=== PATIENT | male | born 1960 | race Caucasian/White ===

== ENCOUNTER 2021-01-27 05:34 | Day surgery (SDC) | payer OTHER ==
[~2021-01-27 05:34] MED LIST: ALEVE220 M1 PO; CENTRUM ADULTS1 EACH PO; MELOXICAM15 MG PO; MULTIVITAMINS1 EAC1 PO
[2021-01-27] MEDS ORDERED: PERCOCET 5-3251 EACH PO (09:24)
--- NOTE | 2021-01-27 13:48 | NUR ---
PT. TO D/C HOME. PT. REQUESTED THERAPY AT [facility]. FIRST APPT. IS 01/30/21 @ 9:30 A[facility].
[2021-01-28 07:09] LABS: BASOPHIL 0.3 % (0-2); EOSINOPHIL 0.1 % (0-5); HCT 36.2 % (42.0-52.0); HGB 12.1 g/dl (13.2-18.0); MCH 33.1 pg (25.0-31.0); MCHC 33.4 g/dL (32.0-36.0); MCV 98.9 fL (78.0-100.0); MONOCYTE 8.3 % (0-12); MPV 12.1 fL (6.0-9.5); NRBC 0; PLT 152 K/uL (150-400); RBC 3.66 M/uL (4.70-6.00); RDW 12.3 % (11.5-14.0); WBC 12.4 K/uL (4.0-10.5)
[2021-01-28 07:39] LABS: BUN/CREAT RATIO (CALC) 16.9 RATIO; CREATININE 0.89 mg/dL (0.67-1.17); POTASSIUM 3.7 mmol/L (3.5-5.1)
[2021-01-28] MEDS ORDERED: FEOSOL325 MG PO (08:56)
[2021-01-28] MEDS ORDERED: ASPIRIN81 MG PO (08:56)
[2021-01-28] MEDS ORDERED: ULTRA-LIGHT RO1 EACH XX (09:00)
== END 2021-01-28 10:29 | disposition home or self-care (01) ==
LOC: FAS 05:34
PROVIDERS: Orthopaedic Surgery
DX: M16.11 Unilateral primary osteoarthritis, right hip (principal); Z88.0 Allergy status to penicillin; Z98.890 Other specified postprocedural states; Z20.822 Contact with and (suspected) exposure to COVID-19
CPT/HCPCS: 36415; 73501; 76000; 80048; 85025; 86850; 86900; 86901; 94010; 94762; 97162; 97166; 97530-GP; 97535; C1776; J0171; J1100; J1170; J1885; J2250; J2270; J2405; J2704; J2795; J3010; J3370; J7050; J7120